=== PATIENT | male | born 1940 | race Caucasian/White ===

== ENCOUNTER → 2018-08-26 | Outpatient (CLI) | payer MEDICARE, OTHER ==
--- NOTE | 2018-08-30 08:02 | MR ---
EXAMINATION TYPE: MR brain/lspine wo con DATE OF EXAM: 08/26/2018 12:47 PM COMPARISON: NONE HISTORY: Low back pain and unsteady gait-Parkinsons FINDINGS: The ventricles, basal cisterns and sulci overlying the cerebral convexities are mildly enlarged. There is evidence of mild to moderate periventricular white matter ischemic demyelination. Remote deep white matter insults are also noted. No acute edema is seen on diffusion weighted imaging. There is no evidence for midline shift or mass effect. Acute intracranial hemorrhage or extra-axial collection is not evident. The paranasal sinuses and mastoid air cells are well-aerated. IMPRESSION: Age-related atrophic and chronic small vessel ischemic change. No acute intracranial process at this time. EXAMINATION TYPE: MR brain/lspine wo con DATE OF EXAM: 08/26/2018 12:47 PM COMPARISON: May 30, 2016 HISTORY: Low back pain and unsteady gait-Parkinsons Multiplanar, MultiSpin echo imaging of the lumbar spine was performed. L1-L2: Severe disc desiccation with a moderate circumferential disc bulge greatest posteriorly. Parti al encapsulating spur resulting in disc endplate complex. Moderate central stenosis redemonstrated. F acet joint arthropathy resulting in severe bilateral foraminal encroachment. L2-L3: Severe disc desiccation with a moderate circumferential disc bulge greatest posteriorly. Parti al encapsulating spur resulting in disc endplate complex. Moderate central stenosis redemonstrated. F acet joint arthropathy resulting in severe bilateral foraminal encroachment. L3-L4: Severe disc desiccation with a moderate circumferential disc bulge greatest posteriorly. Parti al encapsulating spur resulting in disc endplate complex. Severe central stenosis redemonstrated. Fac et joint arthropathy resulting in severe bilateral foraminal encroachment. L4-L5: Severe disc desiccation with a moderate circumferential disc bulge greatest posteriorly. Parti al encapsulating spur resulting in disc endplate complex. Severe central stenosis redemonstrated. Fac et joint arthropathy resulting in severe bilateral foraminal encroachment. L5-S1: Severe disc desiccation with a moderate circumferential disc bulge greatest posteriorly. Parti al encapsulating spur resulting in disc endplate complex. Moderate central stenosis redemonstrated. F acet joint arthropathy resulting in severe bilateral foraminal encroachment. Lumbar segments are intact. Multilevel ventral spondylosis. No paraspinal masses are identified. Con us medullaris has a normal appearance. IMPRESSION: 1. Severe multilevel degenerative disc disease, disc endplate complex and central stenosis as outline d above. Overall stable findings when compared to prior study.
== END | disposition home or self-care (01) ==
LOC: RADMRIMAIN 11:24
PROVIDERS: ATTEND Psychiatry & Neurology Neurology
DX: M48.07 Spinal stenosis, lumbosacral region (principal); M51.36 Other intervertebral disc degeneration, lumbar region; G31.1 Senile degeneration of brain, not elsewhere classified; I67.82 Cerebral ischemia
CPT/HCPCS: 70551; 72148

== ENCOUNTER → 2018-09-01 | Outpatient (CLI) | payer MEDICARE, OTHER ==
--- NOTE | 2018-09-02 15:46 | NM ---
EXAMINATION TYPE: NM DatScan Brain SPECT DATE OF EXAM: 09/01/2018 COMPARISON: NONE HISTORY: Tremor per order. TECHNIQUE: 10 drops of Lugol's solution was administered 1 hour prior to injection as a thyroid bloc arabella agent. After the administration of 4.73 mCi I-123 Ioflupane DaTscan. Images obtained 3 hours p ost injection. SPECT images of the brain were acquired with axial and coronal reconstructions. FINDINGS: The DaTSCAN demonstrates balanced striatal loss to the caudate and putamina nucleii in the striata. This appearance is consistent with the loss of the pre-synaptic dopaminergic terminals. IMPRESSION: This abnormal appearance inpatient with tremor is consistent with a diagnosis of idiopathic PD or PS.
== END | disposition home or self-care (01) ==
LOC: RADNMMAIN 09:53
PROVIDERS: ATTEND Psychiatry & Neurology Neurology
DX: G25.0 Essential tremor (principal)
CPT/HCPCS: 78607; A9584